=== PATIENT | female | born 2000 | race Caucasian/White ===

== ENCOUNTER → 2022-04-26 | Day surgery (SDC) | payer BC ==
[~2022-04-26] MED LIST: Ketamine 200 MG/20 ML MDV ONE; Lactated Ringers 1,000 ML IV SCH; Lidocaine 2% 5 ML SDV ONE; Midazolam 1 MG/ML 2 ML SDV ONE; Propofol 200 MG/20 ML SDV ONE; fentaNYL 50 MCG/ML SDV ONE
[2022-04-26 15:05] VITALS: BP 112/61; PULSE 66
== END ==
LOC: CC.SDS 10:54
PROVIDERS: ATTEND Family Medicine
DX: R19.7 Diarrhea, unspecified (principal); K21.9 Gastro-esophageal reflux disease without esophagitis; Z91.018 Allergy to other foods; Z98.890 Other specified postprocedural states
CPT/HCPCS: 36415; 43239; 45380; 84703; 87081; J2250; J2704; J3010; J7120